=== PATIENT | female | born 1955 | race Caucasian/White ===

== ENCOUNTER 2024-08-15 11:38 | Emergency (ER) | payer MEDICARE, OTHER ==
[2024-08-15] MEDS ORDERED: Naloxone 0.4 MG/ML SDV IVPUSH PRN (12:58)
[2024-08-15] MEDS: HYDROmorphone 1 MG/ML Syringe IVPUSH ONE (13:46)
== END 2024-08-15 14:14 ==
LOC: JD.ED 11:38
DX: S72.001A Fracture of unspecified part of neck of right femur, initial encounter for closed fracture (principal); F17.210 Nicotine dependence, cigarettes, uncomplicated; Z90.49 Acquired absence of other specified parts of digestive tract; Z90.710 Acquired absence of both cervix and uterus; Z79.82 Long term (current) use of aspirin; Z79.899 Other long term (current) drug therapy; W00.0XXA Fall on same level due to ice and snow, initial encounter
CPT/HCPCS: 73502; 96374; 99285; J1171